=== PATIENT | female | born 1980 | race Caucasian/White ===

== ENCOUNTER 2016-11-28 16:23 | Emergency (ER) | payer SELFPAY ==
[~2016-11-28 16:23] MED LIST: CIPRO500 M2 PO; IMITREX100 M1 PO; IRON1 TA1 PO; NORCO 5-325 TA1 EACH PO; PROMETHAZINE HC25 M3 PO; SKELAXIN800 M3 PO; TYLENOL WITH C1 EACH PO; TYLENOL325 MG PO
[2016-11-28] MEDS ORDERED: NORCO 5-325 TA1 EACH PO (18:59)
[2016-11-28] MEDS ORDERED: DIFLUCAN150 M1 PO (19:28)
== END 2016-11-28 19:27 ==
LOC: EDMED 16:23
DX: K08.89 Other specified disorders of teeth and supporting structures (principal)